=== PATIENT | female | born 1995 | race Caucasian/White ===

== ENCOUNTER 2017-06-27 00:06 | Emergency (ER) | payer BC, OTHER ==
--- NOTE | 2017-06-27 00:33 | EDPHY ---
H & P Stated Complaint: LEFT FOOT INJURY IN [place] YESTERDAY Time Seen by Provider: 06/27/17 00:33 HPI/ROS: HPI CHIEF COMPLAINT: Left foot pain HISTORY OF PRESENT ILLNESS: Patient is a 22-year-old female, she denies having any significant medical history she presents emergency room with left foot pain , ecchymosis and swelling. Patient reports she was in [place] she got intoxicated somehow injured her left foot on a dock. She now significant pain to the midfoot of her left foot. She is only able to bear weight on the ball of her foot. Denies any knee pain or upper tib-fib pain. Pain is located mid foot. She has extensive ecchymosis to the left foot and swelling. It is neurovascularly intact. She denies any other areas of injury. Past Medical History: No significant medical history Past Surgical History: No significant surgical history Social History: [employer] student Family History: Noncontributory ROS REVIEW OF SYSTEMS: A comprehensive 10 point review of systems is otherwise negative aside from elements mentioned in the history of present illness. Exam Constitutional triage nursing summary reviewed, vital signs reviewed, awake/ alert. Eyes normal conjunctivae and sclera, EOMI, PERRLA. HENT normal inspection, atraumatic, moist mucus membranes, no epistaxis, neck supple/ no meningismus, no raccoon eyes. Respiratory clear to auscultation bilaterally, normal breath sounds, no respiratory distress, no wheezing. Cardiovascular rate normal, regular rhythm, no murmur, no edema, distal pulses normal. Gastrointestinal soft, non-tender, no rebound, no guarding, normal bowel sounds, no distension, no pulsatile mass. Genitourinary no CVA tenderness. Musculoskeletal left lower extremity: Significant ecchymosis present, soft tissue swelling present of the left foot, tender palpation over the midfoot, good distal pulse. Good cap refill. Full range of motion but has pain with range of motion left foot. Most tender focally over the base of the 2nd and 3rd phalange. no midline vertebral tenderness, full range of motion, no calf swelling, no tenderness of extremities, no meningismus, good pulses, neurovascularly intact. Skin pink, warm, & dry, no rash, skin atraumatic. Neurologic awake, alert and oriented x 3, AAOx3, moves all 4 extremities equally, motor intact, sensory intact, CN II-XII intact, normal cerebellar, normal vision, normal speech. Psychiatric normal mood/affect. Heme/Lymph/Immune no lymphadenopathy. Differential Diagnosis: Includes but is not limited to in a particular order left foot fracture, left foot contusion, soft tissue injury, sprain Medical Decision Making: Given how swollen the patient's foot is an ecchymotic should be placed in a 3 way splint, and crutches. Ona for pain control and ibuprofen. Recommend close follow-up with Podiatry. She understands. Return precautions discussed. She understands return if she has worsening pain questions or concerns. X-ray of the left foot: I do not appreciate acute fracture. Extensive soft tissue swelling seen on the x-ray. Plan for three way splint, and crutches. Podiatry follow-up. Patient understands she will need to follow up with Podiatry. She understands repeat imaging may or may not show a fracture. However given how swollen ecchymotic and painful or foot is will splint for comfort in case there is an occult fracture that cannot be visualized tonight on x-ray. I have discussed this with her she is fine with splint. Understands follow-up with Podiatry. Return precautions discussed. Source: Patient - Personal History LMP (Females 10-55): IUD In Place Current Tetanus/Diphtheria Vaccine: Yes Current Tetanus Diphtheria and Acellular Pertussis (TDAP): Yes Tetanus Vaccine Date: WITHIN 10 YRS - Medical/Surgical History Hx Asthma: No Hx Chronic Respiratory Disease: No Hx Diabetes: No Hx Cardiac Disease: No Hx Renal Disease: No Hx Cirrhosis: No Hx Alcoholism: No Hx HIV/AIDS: No Hx Splenectomy or Spleen Trauma: No Other PMH: DENIES - Social History Smoking Status: Never smoked Constitutional: Initial Vital Signs Temperature (C) 36.9 C 06/27/17 00:07 Heart Rate 84 06/27/17 00:07 Respiratory Rate 18 06/27/17 00:07 Blood Pressure 144/90 H 06/27/17 00:07 O2 Sat (%) 96 06/27/17 00:07 O2 Delivery Mode Room Air Allergies/Adverse Reactions: No Known Allergies Allergy (Unverified 06/14/11 18:08) Home Medications: Medication Instructions Recorded Hydrocodone/APAP 5/325 [Ona 1 - 2 tab PO Q4H PRN #10 tab 06/27/17 5/325] Ibuprofen [Motrin (*)] 800 mg PO Q6-8PRN #14 tab 06/27/17 Departure - Departure Disposition: Home, Routine, Self-Care Clinical Impression: Foot fracture, left Qualifiers: Encounter type: initial encounter Fracture type: closed Qualified Code(s): S92.902A - Unspecified fracture of left foot, initial encounter for closed fracture Condition: Good Instructions: Foot Fracture in Adults (ED) Additional Instructions: 1. Keep your foot elevated 2. I do recommend you follow up with Podiatry. 3. Keep our foot elevated as much as possible. Ice her foot. Stay off into your cleared by podiatry. Referrals: NONE *PRIMARY CARE P,. [Primary Care Provider] - As per Instructions Shanae Parks DPM [Doctor of Podiatric Medicine] - As per Instructions Prescriptions: Hydrocodone/APAP 5/325 [Ona 5/325] 1 - 2 tab PO Q4H PRN #10 tab PRN Reason: Pain, Moderate Ibuprofen [Motrin (*)] 800 mg PO Q6-8PRN #14 tab
[2017-06-27 01:24] VITALS: BP 131/79
== END 2017-06-27 01:23 | disposition home or self-care (01) ==
PROC: 2W3QX1Z Immobilization of Right Lower Leg using Splint (ICD-10-PCS; principal; 2017-06-27)
DX: S92.902A Unspecified fracture of left foot, initial encounter for closed fracture (principal); X58.XXXA Exposure to other specified factors, initial encounter; Y92.62 Dock or shipyard as the place of occurrence of the external cause; Y99.8 Other external cause status; Y93.89 Activity, other specified